=== PATIENT | male | born 1940 | race Caucasian/White ===

== ENCOUNTER 2019-06-04 09:05 | Day surgery (SDC) | payer OTHER ==
[~2019-06-04 09:05] MED LIST: AMLO5 PO; ATEN50 PO; BENA20 PO; FURO40 PO; POTA10T PO; ROSU10TA PO; TAMS.4ER PO; WARF5 PO
[2019-06-04 11:18] LABS: Performing Lab VERACYTE; Test Name FNA
== END 2019-06-04 22:59 | disposition home or self-care (01) ==
LOC: US 09:05 → ORSCMMR 09:06 → US 22:59
PROVIDERS: Family Medicine
DX: E04.1 Nontoxic single thyroid nodule (principal); I10 Essential (primary) hypertension; I48.91 Unspecified atrial fibrillation; I25.10 Atherosclerotic heart disease of native coronary artery without angina pectoris; E78.5 Hyperlipidemia, unspecified; G47.30 Sleep apnea, unspecified; Z79.899 Other long term (current) drug therapy; Z79.01 Long term (current) use of anticoagulants; Z79.82 Long term (current) use of aspirin; Z99.89 Dependence on other enabling machines and devices; Z88.8 Allergy status to other drugs, medicaments and biological substances
CPT/HCPCS: 10005

== ENCOUNTER 2022-06-28 13:53 | Day surgery (SDC) | payer OTHER ==
[~2022-06-28] VITALS: Ht 182.9 cm; Wt 103.1 kg
== END 2022-06-28 15:58 | disposition home or self-care (01) ==
LOC: ORSCSDS 13:53
PROVIDERS: Surgery
PROC: 0DJD8ZZ Inspection of Lower Intestinal Tract, Via Natural or Artificial Opening Endoscopic (ICD-10-PCS; principal; 2022-06-28 15:15)
DX: Z12.11 Encounter for screening for malignant neoplasm of colon (principal); K57.30 Diverticulosis of large intestine without perforation or abscess without bleeding; I25.10 Atherosclerotic heart disease of native coronary artery without angina pectoris; I10 Essential (primary) hypertension; E78.5 Hyperlipidemia, unspecified; I48.91 Unspecified atrial fibrillation; I25.2 Old myocardial infarction; G47.33 Obstructive sleep apnea (adult) (pediatric); E66.9 Obesity, unspecified; Z68.30 Body mass index [BMI] 30.0-30.9, adult; Z79.01 Long term (current) use of anticoagulants; Z79.899 Other long term (current) drug therapy
CPT/HCPCS: J0330; J0461; J2405; J2704; J7120

== ENCOUNTER → 2023-10-04 | Outpatient (CLI) | payer OTHER | LOC: LAB SHORT 13:44 → PLD 13:44 | DX: R23.8 Other skin changes (principal); R23.4 Changes in skin texture | CPT/HCPCS: 88341; 88342 ==